=== PATIENT | male | born 1955 | race Caucasian/White ===

== ENCOUNTER 2020-12-06 17:13 | Emergency (ER) | payer MEDICARE, BC ==
--- NOTE | 2020-12-06 17:43 | EDM.PDOC ---
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 - Related Data Allergies Allergy/AdvReac Type Severity Reaction Status Date / Time No Known Allergies Allergy Verified 12/06/20 17:27 ED ROS GENERAL - Review of Systems Review Of Systems: See Below Constitutional: Reports: No Symptoms HEENT: Reports: No Symptoms Respiratory: Reports: No Symptoms Cardiovascular: Reports: No Symptoms Endocrine: Reports: No Symptoms GI/Abdominal: Reports: No Symptoms : Reports: No Symptoms Musculoskeletal: Reports: No Symptoms Skin: Reports: Wound Neurological: Reports: No Symptoms Psychiatric: Reports: No Symptoms Hematologic/Lymphatic: Reports: No Symptoms Immunologic: Reports: No Symptoms ED EXAM, SKIN/RASH Exam: See Below Exam Limited By: No Limitations General Appearance: Alert, WD/WN, No Apparent Distress Skin: Other (L ankle with superficial abrasion anteriorly of 10 cm into superficial dermis, there is a 2nd lac of 2 cm that is full thickness, gap of 3 mm from missing skin, no bleeidng, unable to close the gap d/t missing skin) Course - Re-Assessments/Exams Free Text/Narrative Re-Assessment/Exam: 12/06/20 17:44 lac should heal well, no fb, sutures will add unnecessary risk of infection last Td per [facility] was 2019 Departure - Departure Time of Disposition: 17:38 Disposition: Home, Self-Care 01 Condition: Good Clinical Impression: Laceration of left ankle - Discharge Information *PRESCRIPTION DRUG MONITORING PROGRAM REVIEWED*: Not Applicable *COPY OF PRESCRIPTION DRUG MONITORING REPORT IN PATIENT CHENCHO: Not Applicable Instructions: Laceration Care, Adult Referrals: Eren Flanagan MD [Primary Care Provider] - Additional Instructions: Keep dry for 24 hours. Keep covered with a dressing for 5 days. Avoid friction and rubbing. While infection is unlikely, see a physician the same day for any increase in redness, swelling, pain, warmth, fever or drainage.
[2020-12-06] MEDS: Diphtheria,Pertussis(Acell),Tetanus Vaccine 0.5 ML Syringe IM ONE (17:56)
== END 2020-12-06 18:00 | disposition home or self-care (01) ==
LOC: FB.ED 17:13
DX: S91.012A Laceration without foreign body, left ankle, initial encounter (principal); W22.8XXA Striking against or struck by other objects, initial encounter
CPT/HCPCS: 99282

== ENCOUNTER 2021-10-13 07:48 | Day surgery (SDC) | payer MEDICARE, BC ==
[~2021-10-13 07:48] MED LIST: Lactated Ringers 1,000 ML IV SCH; Sodium Chloride 0.9% 10 ML Syringe FLUSH PRN
[2021-10-13] MEDS ORDERED: Propofol 200 MG/20 ML SDV IV ONE (07:49)
[2021-10-13] MEDS ORDERED: Lidocaine 1% PF 2 ML SDV INJECT ONE (07:49)
== END 2021-10-13 11:15 | disposition home or self-care (01) ==
LOC: FB.SDS 07:48
PROVIDERS: ATTEND Surgery
DX: Z12.11 Encounter for screening for malignant neoplasm of colon (principal); E78.00 Pure hypercholesterolemia, unspecified; I10 Essential (primary) hypertension; N40.0 Benign prostatic hyperplasia without lower urinary tract symptoms; I48.20 Chronic atrial fibrillation, unspecified; F41.9 Anxiety disorder, unspecified; Z86.010 Personal history of colon polyps; Z79.899 Other long term (current) drug therapy; Z86.73 Personal history of transient ischemic attack (TIA), and cerebral infarction without residual deficits; Z87.891 Personal history of nicotine dependence; Z79.01 Long term (current) use of anticoagulants
CPT/HCPCS: 00811-QZ; 36415; 85610; J2704; J7120

== ENCOUNTER 2023-11-11 12:03 | Emergency (ER) | payer MEDICARE, BC ==
[2023-11-11 12:31] LABS: INR 2.79 (1.00-1.24); PROTHROMBIN TIME 26.6 sec (9.0-11.1)
== END 2023-11-11 13:14 | disposition home or self-care (01) ==
LOC: FB.ED 12:03
DX: I48.20 Chronic atrial fibrillation, unspecified (principal); E78.00 Pure hypercholesterolemia, unspecified; I10 Essential (primary) hypertension; Z79.899 Other long term (current) drug therapy; Z79.01 Long term (current) use of anticoagulants
CPT/HCPCS: 36415; 85610; 99283; 99284